=== PATIENT | female | born 1990 | race Caucasian/White ===

== ENCOUNTER → 2021-10-01 13:58 | Outpatient (CLI) | payer BC, SELFPAY ==
[2021-10-01 17:34] LABS: Hematocrit 32.6 % (37-47); Hemoglobin 10.5 g/dL (12.0-15.0); Mean Corp Hgb Conc 32.2 g/dL (32-36); Mean Corpuscular Volume 96.2 fL (81-99); Mean Platelet Vol. 10.3 fl (6.2-12.0); Platelet Count 359 K/mm3 (150-450); RBC Distribution Width CV 12.4 % (11.6-14.6); RBC Distribution Width SD 43.5 fl (35.1-43.9); Red Blood Count 3.39 M/mm3 (4.2-5.4); White Blood Count 14.6 K/mm3 (4.4-11.0)
[2021-10-01 17:37] LABS: Glucose Challenge Gest 1H 50g 81 mg/dL (70-140)
== END ==
PROVIDERS: Visit Provider Student in an Organized Health Care Education/Training Program
DX: Z34.82 Encounter for supervision of other normal pregnancy, second trimester (principal)
CPT/HCPCS: 36415; 82950; 85027

== ENCOUNTER → 2021-10-15 13:42 | Outpatient (CLI) | payer BC, SELFPAY ==
[2021-10-15 14:38] LABS: ALB/GLOB Ratio 0.6 RATIO (0.9-2.4); AST(SGOT) 12 U/L (15-37); Alanine Aminotransfer ALT/SGPT 17 U/L (13-56); Albumin, Serum 2.6 g/dL (3.2-5.0); Alkaline Phosphatase 89 U/L (45-117); Anion Gap 7 (5-15); BUN 7 mg/dL (7-18); BUN/Creat Ratio 10.4 RATIO (10-20); Calcium,Total 8.8 mg/dL (8.5-10.1); Chloride 106 mmol/L (98-107); Creatinine, Serum 0.68 mg/dL (0.55-1.02); EST Glomerular Filtration Rate 110 mL/min (>60); Est Glom Filt Rate - Afr Amer 133 mL/min (>60); Globulin 4.2 g/dL (2.2-4.2); Glucose 93 mg/dL (74-106); Potassium 3.5 mmol/L (3.5-5.1); Protein, Total 6.8 g/dL (6.4-8.2); Sodium Level 137 mmol/L (136-145)
== END ==
PROVIDERS: Visit Provider Student in an Organized Health Care Education/Training Program
DX: O26.893 Other specified pregnancy related conditions, third trimester (principal); L29.9 Pruritus, unspecified; Z3A.00 Weeks of gestation of pregnancy not specified
CPT/HCPCS: 36415; 80053

== ENCOUNTER 2021-12-11 16:52 | Outpatient (CLI) | payer BC, SELFPAY ==
[2021-12-11 17:35] LABS: Hematocrit 31.2 % (37-47); Hemoglobin 9.6 g/dL (12.0-15.0); Mean Corp Hgb Conc 30.8 g/dL (32-36); Mean Corpuscular Hgb 27.3 pg (27.0-32.0); Mean Corpuscular Volume 88.6 fL (81-99); Mean Platelet Vol. 11.4 fl (6.2-12.0); Platelet Count 306 K/mm3 (150-450); RBC Distribution Width SD 44.6 fl (35.1-43.9); Red Blood Count 3.52 M/mm3 (4.2-5.4); White Blood Count 13.3 K/mm3 (4.4-11.0)
== END 2021-12-11 23:59 | disposition short-term general hospital (02) ==
LOC: WOBLAB 16:53
PROVIDERS: Visit Provider Student in an Organized Health Care Education/Training Program
DX: O99.019 Anemia complicating pregnancy, unspecified trimester (principal); D64.9 Anemia, unspecified; Z3A.00 Weeks of gestation of pregnancy not specified; Z36.85 Encounter for antenatal screening for Streptococcus B
CPT/HCPCS: 36415; 85027; 87081

== ENCOUNTER 2021-12-20 17:50 | Outpatient (CLI) | payer BC, SELFPAY ==
[2021-12-20 17:56] VITALS: BMI 27.3
[2021-12-20 18:06] VITALS: BP 123/77; PULSE 85; O2SAT 100
[2021-12-20 18:16] VITALS: TEMP 37.2; O2SAT 100
--- NOTE | 2021-12-20 19:05 | OB.TRI.NOTE ---
HPI - General HPI Narrative SHOSHANA ASTUDILLO, is a 31 F who presents with leakage of fluid PFSH PFSH Home Medications famotidine 20 mg PO DAILY 12/20/21 [History Last Taken Unknown] ferrous sulfate mg PO 12/20/21 [History Last Taken Unknown] uggdulcl-[id number]-Vw-FA [] tab PO 12/20/21 [History Last Taken Unknown] Allergy/AdvReac Type Severity Reaction Status Date / Time No Known Allergies Allergy Verified 12/20/21 18:32 Physical Exam Const alert, oriented x3, no apparent distress, average body habitus, healthy appearing and well nourished HEENT moist oral mucous membranes Head and Scalp: normocephalic and atraumatic Face and Sinus: normal facial exam Eyes PERRL Neck full ROM Resp normal respiratory effort, no retractions and no use of accessory muscles Extremity normal to inspection and full ROM Psych mental status grossly normal, affect normal, speech normal and activity/motor behavior normal NST FHR Rate Baby A Baseline: 130 Variability:: Moderate Accelerations:: 15 x 15 Decelerations:: None NST Reactive:: Yes Uterine Activity:: Quiet Assessment & Plan (1) : PLAN: Patient seen and examined. Leakage of fluid. ROM sent and pending. NST reactive. If from test negative okay to discharge home and follow-up at scheduled appointments
[2021-12-20 19:31] LABS: ROM Internal Control Test YES-OK TO RESULT pt. (Internal QC); ROM Patient Test Negative (Negative)
== END 2021-12-20 23:59 | disposition home or self-care (01) ==
LOC: WPOUT 17:54 → WP 17:56
PROVIDERS: Visit Provider Obstetrics & Gynecology
DX: O42.90 Premature rupture of membranes, unspecified as to length of time between rupture and onset of labor, unspecified weeks of gestation (principal); Z3A.00 Weeks of gestation of pregnancy not specified
CPT/HCPCS: 59025; 59050; 84112; 99218; G0378

== ENCOUNTER 2021-12-24 16:49 | Outpatient (CLI) | payer BC, SELFPAY ==
[2021-12-24 17:25] LABS: Hematocrit 29.5 % (37-47); Hemoglobin 9.5 g/dL (12.0-15.0); Mean Corp Hgb Conc 32.2 g/dL (32-36); Mean Corpuscular Hgb 27.7 pg (27.0-32.0); Mean Platelet Vol. 11.2 fl (6.2-12.0); Platelet Count 327 K/mm3 (150-450); RBC Distribution Width CV 14.8 % (11.6-14.6); RBC Distribution Width SD 45.8 fl (35.1-43.9); Red Blood Count 3.43 M/mm3 (4.2-5.4); White Blood Count 11.8 K/mm3 (4.4-11.0)
[2021-12-24 17:42] LABS: ALB/GLOB Ratio 0.5 RATIO (0.9-2.4); AST(SGOT) 20 U/L (15-37); Alanine Aminotransfer ALT/SGPT 19 U/L (13-56); Albumin, Serum 2.4 g/dL (3.2-5.0); Alkaline Phosphatase 215 U/L (45-117); Anion Gap 7 (5-15); BUN 7 mg/dL (7-18); BUN/Creat Ratio 11.2 RATIO (10-20); Calcium,Total 8.6 mg/dL (8.5-10.1); Chloride 107 mmol/L (98-107); Creatinine, Serum 0.63 mg/dL (0.55-1.02); EST Glomerular Filtration Rate 119 mL/min (>60); Est Glom Filt Rate - Afr Amer 144 mL/min (>60); Globulin 4.4 g/dL (2.2-4.2); Glucose 99 mg/dL (74-106); LDH 182 U/L (84-246); Potassium 3.5 mmol/L (3.5-5.1); Protein, Total 6.8 g/dL (6.4-8.2); Sodium Level 137 mmol/L (136-145)
[2021-12-24 18:35] LABS: Protein, Urine (Random) < 6.0 mg/dL (<11.9)
== END 2021-12-24 23:59 | disposition short-term general hospital (02) ==
LOC: WOBLAB 16:50
PROVIDERS: Visit Provider Student in an Organized Health Care Education/Training Program
DX: O26.899 Other specified pregnancy related conditions, unspecified trimester (principal); R03.0 Elevated blood-pressure reading, without diagnosis of hypertension; Z3A.00 Weeks of gestation of pregnancy not specified
CPT/HCPCS: 36415; 80053; 82570; 83615; 84156; 85027; 87077; 87086; 87088; 87186

== ENCOUNTER 2021-12-26 19:11 | Inpatient (IN) | payer BC, SELFPAY ==
[2021-12-26] VITALS (25 sets, daily range): BP systolic 113–167; BP diastolic 56–91; PULSE 70–102; TEMP 36.7; O2SAT 80–99
[2021-12-26] MEDS: Lactated Ringers 1,000 ML 50 ML IV (20:01)
[2021-12-26 20:18] LABS: Bacteria 0 SEEN /hpf (None Seen); Mucous, Urine 0 SEEN /hpf (<or=2+); Red Blood Cells-Urine 0 SEEN /hpf (0-5)
[2021-12-26] MEDS: Oxytocin 30 units/NS 500 ml 30 UNITS/500 ML IV.SOLN IV (20:20)
[2021-12-26 20:34] LABS: Hematocrit 28.5 % (37-47); Hemoglobin 8.8 g/dL (12.0-15.0); Mean Corp Hgb Conc 30.9 g/dL (32-36); Mean Corpuscular Hgb 26.9 pg (27.0-32.0); Mean Corpuscular Volume 87.2 fL (81-99); Mean Platelet Vol. 11.3 fl (6.2-12.0); Platelet Count 334 K/mm3 (150-450); RBC Distribution Width CV 14.8 % (11.6-14.6); RBC Distribution Width SD 46.5 fl (35.1-43.9); Red Blood Count 3.27 M/mm3 (4.2-5.4); White Blood Count 14.8 K/mm3 (4.4-11.0)
[2021-12-26 20:35] LABS: Absolute Lymphocyte Count 2.28 X10^3/uL (0.83-4.51); Absolute Neutrophil Count 11.2 X10^3/uL (2.0-7.7); Basophil# 0.05 X10^3/uL; Basophil% 0.3 % (0-1); Eosinophil# 0.18 X10^3/uL; Eosinophils% 1.2 % (0-5); Lymphocyte # 2.28 X10^3/ul (0.83-4.51); Lymphocyte % 15.4 % (19-41); Monocyte# 0.94 X10^3/uL; Monocyte% 6.4 % (0-10); Neutrophil # 11.15 X10^3/uL (2.7-7.7); Neutrophil % 75.6 % (47-70)
[2021-12-26 20:45] LABS: Protein, Urine (Random) 10.6 mg/dL (<11.9); Protein:Creat Ratio 155 mg/g CRE (0-200)
[2021-12-26 20:45] LABS: AST(SGOT) 22 U/L (15-37); Alanine Aminotransfer ALT/SGPT 17 U/L (13-56); Creatinine, Serum 0.79 mg/dL (0.55-1.02); EST Glomerular Filtration Rate 92 mL/min (>60); Est Glom Filt Rate - Afr Amer 111 mL/min (>60); Estimated Creatinine Clearance 105.99 ml/min; LDH 203 U/L (84-246); Uric Acid 6.1 mg/dL (2.6-6.0)
[2021-12-26 20:47] LABS: Color, Urine Yellow (Yellow); Glucose, Dipstick Normal (Normal); Ketone-Dipstick Negative (Negative); Leukocyte Esterase-Dipstick 500 /ul (Negative); Nitrite-Dipstick Negative (Negative); Occult Blood-Urine Negative /ul (Negative); Protein-Dipstick Negative (Negative); Urine Bilirubin Dipstick Negative (Negative); Urine Clarity Clear (Clear); Urine Urobilinogen Normal (Normal)
--- NOTE | 2021-12-26 20:47 | PCM.HP.BLA ---
History and Physical Date of Admission: 12/26/21 Chief complaint: Induction of labor gestational hypertension History present illness: 31-year-old G 4P1 at 39 weeks and 0 days with CONSTANTINE: 01/02/2022 arrives for induction of labor with gestational hypertension. Denies headache, visual changes, chest pain, shortness of breath, nausea vomiting, right upper quadrant pain. Patient states good movement. Obstetric history: G1: 39-week male 05/14/2019 G2: SAB G3: SAB G4: Current Past medical history: None Medications: vitamin Past surgical history: None Allergies: No known drug allergies Social history: Denies smoking, alcohol use, drug use Review of systems: Besides above pertinent positives a full review of systems was performed and found to be negative Physical exam: Vitals: Blood pressure 142/86 pulse 79 General: Normal-appearing no acute distress HEENT: Normocephalic/atraumatic no cervical lymphadenopathy Cardiac/respiratory: No use of accessory muscles, nonlabored breathing Abdomen: Soft, nontender, gravid Pelvic exam: Cervical exam 3/80/-3. AROM clear fluid Extremities: No peripheral edema normal peripheral pulses Psych: Normal affect normal demeanor nonpressured speech Labs: White blood cell count 14.8 hemoglobin 8.8 hematocrit 28.5% platelets 334. Creatinine 0.79, AST 22 ALT 17 LDH 203 Assessment and plan: 31-year-old G4, P1 at 39 weeks and 0 days arrives for induction of labor with gestational hypertension Admit labor and delivery CEFM GBS negative Pitocin and AROM induction Gestational hypertension: Asymptomatic and HELLP labs within normal limits. We will continue to monitor blood pressures and treat appropriately Routine orders Anesthesia to see
[2021-12-26 20:51] LABS: White Blood Cells 5-10 SEEN /hpf (0-5)
[2021-12-26 20:52] LABS: Squamous Epithelial Cells - UA 10-25 SEEN /hpf (5-10)
[2021-12-26] MEDS: Lactated Ringers 500 ML 999 ML IV (21:50)
[2021-12-26 22:53] LABS: Syphilis Antibodies Non-reactive
[2021-12-26] MEDS: fentaNYL-bupivacaine (epidural) 100 ML BAG EPIDURAL (23:00)
[2021-12-27] VITALS (20 sets, daily range): BP systolic 116–179; BP diastolic 59–84; PULSE 66–111; RESP 16–18; TEMP 36.8–37.6; O2SAT 97–98
[2021-12-27] MEDS: Oxytocin 30 units/NS 500 ml 30 UNITS/500 ML IV.SOLN 334 UNITS IV (00:36)
--- NOTE | 2021-12-27 00:49 | EX.PCM.OBRPT ---
Vaginal Delivery Findings Description of Procedure: Normal spontaneous vaginal delivery of a viable male , vertex EVELIO. Head and shoulders delivered with ease. Cord cut and clamped. Baby handed off to patient. Placenta delivered via cord traction and fundal massage. First-degree midline perineal laceration noted and repaired in typical fashion. EBL 250 cc Apgars 8/9
[2021-12-27] MEDS: Ibuprofen 600 MG Tablet PO ×3 (03:35→22:43)
[2021-12-27] MEDS: Acetaminophen 500 MG Tablet 1000 MG PO ×2 (08:47→17:31)
[2021-12-27 08:55] LABS: Chlamydia Trachomatis by PCR Negative (Negative); Neisserai gonorrhoeae by PCR Negative (Negative); Probe Check PASS; Sample Adequacy Control PASS; Specimen Processing Control PASS
[2021-12-27] MEDS: Senna/Docusate Sodium 1 Tablet PO (17:32)
[2021-12-28 01:04] VITALS: BP 130/75; PULSE 71
[2021-12-28 01:05] VITALS: BP 130/75; PULSE 71; RESP 18; TEMP 36.9
[2021-12-28 07:35] VITALS: BP 133/81; PULSE 75
--- NOTE | 2021-12-28 08:37 | PN.OBGYN_ITS ---
Subjective Subjective day 2. No overnight complaints. Pain well controlled. Breast- feeding. Home today if okay with pulley man Objective Data Objective Data Vital Signs: Vital Signs Temp Pulse Resp BP Pulse Ox 98.4 F 75 18 133/81 H 98 12/28/21 01:05 12/28/21 07:35 12/28/21 01:05 12/28/21 07:35 12/27/21 16:04 Oxygen Delivery Method Room Air Weight: 178 lb 9.191 oz Intake & Output: Intake and Output for Last 24 Hours 12/26/21 12/27/21 12/28/21 23:59 23:59 23:59 Intake Total 599.90 / 599.90 1059.73 / 1059.73 Output Total 1200 / 1200 Balance 599.90 / 599.90 -140.27 / -140.27 Lab / Micro Data Result Diagrams: 12/26/21 20:01 12/26/21 20:01 Labs: Laboratory Results - last 24 hr 12/26/21 20:01: Chlam trachomat DNA PCR Negative, N.gonorrhoeae DNA (PCR) Neg ative Micro: Microbiology 12/26/21 19:50 Nasal Secretion SARS-CoV-2 Antigen (Rapid) - Final
--- NOTE | 2021-12-28 08:37 | PCM.DC ---
Discharge Instructions Diet Discharge Diet: No restrictions Activity Discharge Activity: Return to Normal Activity, May Drive and May Shower May resume sexual activity in: 4-6 weeks Weight Bearing Status: Weight bearing as tolerated Dressing / Incision Call your doctor if your incision/area has: Continuous Slow Oozing and Foul Smelling Discharge Call your doctor if you observe: Fever of 101 or Higher, Shortness of breath and Chest pain Follow Up Care Please Follow Up With: Gucci Mcfarlane MD When: 2-week telehealth visit, 4 to 6 weeks Test Results: Test results from this visit will be discussed in further detail at your follow-up appointment, if applicable. Discharge Plan Admission Admit Date/Time: 12/26/21 19:11 Attending Provider: Gucci Mcfarlane Discharge Orders/Prescriptions Prescriptions: No Action famotidine 20 mg Tablet 20 mg PO DAILY RF: 0 1 mg Tablet 1 tab PO DAILY RF: 0 ferrous sulfate 325 mg (65 mg iron) Capsule, Extended Release 325 mg PO DAILY RF: 0 Disposition Discharge Orders: Discharge Patient (Routine); Ordered 12/28/21 Ordered By: Dr. Gucci Mcfarlane
[2021-12-28 08:38] VITALS: BP 133/81; PULSE 77; RESP 14; TEMP 37; O2SAT 98
[2021-12-28] MEDS: Acetaminophen 500 MG Tablet 1000 MG PO (11:08)
== END 2021-12-28 12:25 | disposition home or self-care (01) | DRG 807 ==
PROVIDERS: Admitting Provider Obstetrics & Gynecology; Visit Provider Obstetrics & Gynecology
DX: O13.4 Gestational [pregnancy-induced] hypertension without significant proteinuria, complicating childbirth (principal); Z37.0 Single live birth; O26.23 Pregnancy care for patient with recurrent pregnancy loss, third trimester; O70.0 First degree perineal laceration during delivery; Z3A.39 39 weeks gestation of pregnancy
CPT/HCPCS: 59025; 59050; 81001; 82565; 82570; 83615; 84156; 84450; 84460; 84550; 85025; 86780; 86850; 86900; 86901; 87426; 87491; 87591; 99218; J7120; G0378

== ENCOUNTER → 2022-09-09 | Outpatient (CLI) | payer BC, SELFPAY ==
[2022-09-17 16:00] LABS: HPV APTIMA, High Risk Negative (Negative)
== END | disposition home or self-care (01) ==
LOC: LABSPEC 15:27
PROVIDERS: Visit Provider Student in an Organized Health Care Education/Training Program
DX: Z12.4 Encounter for screening for malignant neoplasm of cervix (principal)
CPT/HCPCS: 87624; 88175; G0145

== ENCOUNTER → 2022-12-09 | Outpatient (CLI) | payer BC, SELFPAY ==
[2022-12-13 16:06] LABS: HPV APTIMA, High Risk Negative (Negative)
== END | disposition home or self-care (01) ==
LOC: LABSPEC 13:32
PROVIDERS: Visit Provider Student in an Organized Health Care Education/Training Program
DX: Z12.4 Encounter for screening for malignant neoplasm of cervix (principal)
CPT/HCPCS: 87624; 88175; G0145

== ENCOUNTER → 2023-04-25 | Outpatient (CLI) | payer BC, SELFPAY ==
[2023-04-25 11:54] LABS: Absolute Lymphocyte Count 2.34 X10^3/uL (0.83-4.51); Basophil# 0.07 X10^3/uL; Basophil% 0.8 % (0-1); Eosinophil# 0.11 X10^3/uL; Eosinophils% 1.3 % (0-5); Hemoglobin 12.6 g/dL (12.0-15.0); Lymphocyte # 2.34 X10^3/ul (0.83-4.51); Lymphocyte % 28.4 % (19-41); Mean Corp Hgb Conc 32.3 g/dL (32-36); Mean Corpuscular Hgb 29.4 pg (27.0-32.0); Mean Corpuscular Volume 91.1 fL (81-99); Monocyte# 0.73 X10^3/uL; Monocyte% 8.8 % (0-10); NRBC Flagged by Analyzer 0 % (0-5); Neutrophil # 4.96 X10^3/uL (2.7-7.7); Neutrophil % 60.2 % (47-70); Platelet Count 305 K/mm3 (150-450); RBC Distribution Width CV 12.6 % (11.6-14.6); RBC Distribution Width SD 41.6 fl (35.1-43.9); Red Blood Count 4.28 M/mm3 (4.2-5.4); White Blood Count 8.3 K/mm3 (4.4-11.0)
[2023-04-25 12:59] LABS: Estradiol 173.7 pg/mL; Follicle Stimulating Hormone 2.8 mIU/mL; Luteinizing Hormone 7.5 mIU/mL; Prolactin 10.9 ng/mL; T4 Free Direct 0.76 ng/dL (0.76-1.46); Thyroid Stim Hormone (TSH) 2.14 uIU/mL (0.358-3.74)
== END | disposition home or self-care (01) ==
LOC: WOBLAB 11:32
PROVIDERS: Visit Provider Nurse Practitioner Women's Health
DX: N93.9 Abnormal uterine and vaginal bleeding, unspecified (principal)
CPT/HCPCS: 36415; 82670; 83001; 83002; 84146; 84439; 84443; 85025

== ENCOUNTER → 2023-05-30 | Outpatient (CLI) | payer BC, SELFPAY ==
[2023-05-30 15:57] LABS: Absolute Lymphocyte Count 2.46 X10^3/uL (0.83-4.51); Absolute Neutrophil Count 6.6 X10^3/uL (2.0-7.7); Basophil# 0.06 X10^3/uL; Basophil% 0.6 % (0-1); Eosinophil# 0.11 X10^3/uL; Eosinophils% 1.1 % (0-5); Hematocrit 37.7 % (37-47); Hemoglobin 12.2 g/dL (12.0-15.0); Lymphocyte # 2.46 X10^3/ul (0.83-4.51); Lymphocyte % 24.6 % (19-41); Mean Corp Hgb Conc 32.4 g/dL (32-36); Mean Corpuscular Hgb 29.8 pg (27.0-32.0); Mean Platelet Vol. 10.8 fl (6.2-12.0); Monocyte# 0.74 X10^3/uL; Monocyte% 7.4 % (0-10); NRBC Flagged by Analyzer 0 % (0-5); Neutrophil # 6.61 X10^3/uL (2.7-7.7); Neutrophil % 65.9 % (47-70); Platelet Count 298 K/mm3 (150-450); RBC Distribution Width CV 12.6 % (11.6-14.6); RBC Distribution Width SD 42.1 fl (35.1-43.9)
[2023-05-30 17:08] LABS: HIV - WCH Non-Reactive (Nonreactive); Hepatitis B Surface Antigen Non-Reactive (Nonreactive); Hepatitis C Antibody Non-Reactive (Nonreactive); Rubella IgG Reactive (Nonreactive); Syphilis Antibodies Non-reactive
[2023-06-01 08:08] LABS: V-Zoster IgG (Immunity) 1340 index (Immune >165)
== END | disposition home or self-care (01) ==
PROVIDERS: Visit Provider Student in an Organized Health Care Education/Training Program
DX: N91.2 Amenorrhea, unspecified (principal)
CPT/HCPCS: 36415; 85025; 86703; 86762; 86780; 86787; 86803; 87086; 87088; 87340

== ENCOUNTER → 2023-07-04 | Outpatient (CLI) | payer BC, SELFPAY ==
[2023-07-04 11:05] LABS: Hemoglobin A1c 5.3 % (3.8-5.6)
[2023-07-04 11:44] LABS: Thyroid Stim Hormone (TSH) 1.34 uIU/mL (0.358-3.74)
[2023-07-06 01:06] LABS: Anti-Cardiolipin Ab, IgG, Qn < 9 GPL U/mL (0-14); Anti-Cardiolipin Ab, IgM, Qn < 9 MPL U/mL (0-12); Dilute Prothrombin Time (dPT) 35.4 sec (0.0-47.6); Dilute Russell Viper Venom 30.6 sec (0.0-47.0); Interpretation Comment: (.); PTT-LA 36.4 sec (0.0-43.5); Thrombin Time 16.8 sec (0.0-23.0); dPT Confirm Ratio 0.97 Ratio (0.00-1.34)
[2023-07-06 10:07] LABS: Beta-2-Microglobulin, S 1.4 mg/L (0.6-2.4)
== END | disposition home or self-care (01) ==
PROVIDERS: Visit Provider Student in an Organized Health Care Education/Training Program
DX: N96 Recurrent pregnancy loss (principal)
CPT/HCPCS: 36415; 82232; 83036; 84443; 86147

== ENCOUNTER → 2023-10-13 | Outpatient (CLI) | payer BC, SELFPAY ==
[2023-10-13 17:05] LABS: Creatinine, Urine (random) < 13.00 mg/dL (NO RANGE EST.); Protein, Urine (Random) < 6.0 mg/dL (<11.9)
[2023-10-16 11:08] LABS: Chlamydia By Nucleic Acid AMP Negative (Negative); Gonococcus By Nucleic Acid AMP Negative (Negative)
== END | disposition home or self-care (01) ==
LOC: LABSPEC 16:07
PROVIDERS: Referring Provider Obstetrics & Gynecology; Visit Provider Obstetrics & Gynecology
DX: Z34.90 Encounter for supervision of normal pregnancy, unspecified, unspecified trimester (principal); Z87.59 Personal history of other complications of pregnancy, childbirth and the puerperium
CPT/HCPCS: 82570; 84156; 87086; 87088; 87491; 87591

== ENCOUNTER → 2023-10-27 | Outpatient (CLI) | payer BC, SELFPAY ==
[2023-10-27 17:10] LABS: Absolute Lymphocyte Count 2.21 X10^3/uL (0.83-4.51); Absolute Neutrophil Count 7.7 X10^3/uL (2.0-7.7); Basophil# 0.05 X10^3/uL; Basophil% 0.5 % (0-1); Eosinophil# 0.14 X10^3/uL; Eosinophils% 1.3 % (0-5); Hematocrit 37.4 % (37-47); Hemoglobin 12.7 g/dL (12.0-15.0); Lymphocyte # 2.21 X10^3/ul (0.83-4.51); Lymphocyte % 20.1 % (19-41); Mean Corpuscular Hgb 30.8 pg (27.0-32.0); Mean Corpuscular Volume 90.6 fL (81-99); Mean Platelet Vol. 10.1 fl (6.2-12.0); Monocyte# 0.85 X10^3/uL; Monocyte% 7.7 % (0-10); NRBC Flagged by Analyzer 0 % (0-5); Neutrophil % 70.1 % (47-70); Platelet Count 322 K/mm3 (150-450); RBC Distribution Width CV 12.8 % (11.6-14.6); RBC Distribution Width SD 42.3 fl (35.1-43.9); Red Blood Count 4.13 M/mm3 (4.2-5.4)
[2023-10-27 17:45] LABS: ALB/GLOB Ratio 0.9 RATIO (0.9-2.4); AST(SGOT) 14 U/L (15-37); Alanine Aminotransfer ALT/SGPT 14 U/L (13-56); Albumin, Serum 3.5 g/dL (3.2-5.0); Alkaline Phosphatase 45 U/L (45-117); Anion Gap 7 (5-15); BUN 8 mg/dL (7-18); BUN/Creat Ratio 14.9 RATIO (10-20); Calcium,Total 8.8 mg/dL (8.5-10.1); Chloride 108 mmol/L (98-107); Creatinine, Serum 0.54 mg/dL (0.55-1.02); EST Glomerular Filtration Rate 141 mL/min (>60); Est Glom Filt Rate - Afr Amer 171 mL/min (>60); Globulin 3.7 g/dL (2.2-4.2); Glucose 88 mg/dL (74-106); Potassium 3.6 mmol/L (3.5-5.1); Protein, Total 7.2 g/dL (6.4-8.2); Sodium Level 138 mmol/L (136-145)
[2023-10-27 17:58] LABS: NATERA MAILED SPECIMEN
[2023-10-27 18:20] LABS: HIV - WCH Non-Reactive (Nonreactive); Hepatitis B Surface Antigen Non-Reactive (Nonreactive); Hepatitis C Antibody Non-Reactive (Nonreactive); Rubella IgG Reactive (Nonreactive); Syphilis Antibodies Non-reactive
== END | disposition home or self-care (01) ==
LOC: LAB 16:42
PROVIDERS: Referring Provider Obstetrics & Gynecology; Visit Provider Obstetrics & Gynecology
DX: Z34.81 Encounter for supervision of other normal pregnancy, first trimester (principal); Z87.59 Personal history of other complications of pregnancy, childbirth and the puerperium
CPT/HCPCS: 36415; 80053; 85025; 86703; 86762; 86780; 86803; 86850; 86900; 86901; 87340

== ENCOUNTER → 2024-03-01 | Outpatient (CLI) | payer OTHER, SELFPAY ==
[2024-03-01 10:12] LABS: Absolute Lymphocyte Count 1.94 X10^3/uL (0.83-4.51); Absolute Neutrophil Count 10.5 X10^3/uL (2.0-7.7); Basophil# 0.08 X10^3/uL; Basophil% 0.6 % (0-1); Eosinophil# 0.17 X10^3/uL; Eosinophils% 1.2 % (0-5); Hematocrit 30.2 % (37-47); Hemoglobin 9.7 g/dL (12.0-15.0); Lymphocyte # 1.94 X10^3/ul (0.83-4.51); Lymphocyte % 13.7 % (19-41); Mean Corp Hgb Conc 32.1 g/dL (32-36); Mean Corpuscular Hgb 29.8 pg (27.0-32.0); Mean Corpuscular Volume 92.6 fL (81-99); Mean Platelet Vol. 10.2 fl (6.2-12.0); Monocyte# 0.91 X10^3/uL; Monocyte% 6.4 % (0-10); NRBC Flagged by Analyzer 0 % (0-5); Neutrophil % 74.3 % (47-70); Platelet Count 348 K/mm3 (150-450); RBC Distribution Width CV 12.6 % (11.6-14.6); RBC Distribution Width SD 42.4 fl (35.1-43.9); Red Blood Count 3.26 M/mm3 (4.2-5.4); White Blood Count 14.1 K/mm3 (4.4-11.0)
[2024-03-01 10:40] LABS: Glucose Challenge Gest 1H 50g 121 mg/dL (70-140)
[2024-03-01 10:59] LABS: HIV - WCH Non-Reactive (Nonreactive); Syphilis Antibodies Non-reactive
== END | disposition home or self-care (01) ==
LOC: LAB 09:20
PROVIDERS: Referring Provider Obstetrics & Gynecology; Visit Provider Obstetrics & Gynecology
DX: O09.90 Supervision of high risk pregnancy, unspecified, unspecified trimester (principal); Z3A.00 Weeks of gestation of pregnancy not specified; Z13.1 Encounter for screening for diabetes mellitus
CPT/HCPCS: 36415; 82950; 85025; 86703; 86780

== ENCOUNTER → 2024-04-12 | Outpatient (CLI) | payer OTHER, SELFPAY ==
[2024-04-12 10:20] LABS: Absolute Lymphocyte Count 1.93 X10^3/uL (0.83-4.51); Basophil# 0.08 X10^3/uL; Basophil% 0.6 % (0-1); Eosinophil# 0.14 X10^3/uL; Eosinophils% 1.1 % (0-5); Hematocrit 33.3 % (37-47); Hemoglobin 10.5 g/dL (12.0-15.0); Lymphocyte # 1.93 X10^3/ul (0.83-4.51); Lymphocyte % 15.2 % (19-41); Mean Corp Hgb Conc 31.5 g/dL (32-36); Mean Corpuscular Hgb 29.4 pg (27.0-32.0); Mean Corpuscular Volume 93.3 fL (81-99); Mean Platelet Vol. 10.5 fl (6.2-12.0); Monocyte# 1.05 X10^3/uL; Monocyte% 8.3 % (0-10); NRBC Flagged by Analyzer 0 % (0-5); Neutrophil # 8.99 X10^3/uL (2.7-7.7); Neutrophil % 71.1 % (47-70); Platelet Count 300 K/mm3 (150-450); RBC Distribution Width CV 15.5 % (11.6-14.6); RBC Distribution Width SD 52.1 fl (35.1-43.9); Red Blood Count 3.57 M/mm3 (4.2-5.4); White Blood Count 12.7 K/mm3 (4.4-11.0)
[2024-04-12 10:59] LABS: Ferritin 7 ng/mL (8-252); Iron 129 ug/dL (50-170); Iron Binding Capacity,Total 503 ug/dL (250-450); PERCENT IRON SATURATION 25.6 % (15.0-55.0)
[2024-04-12 16:52] LABS: Vitamin B12 199 pg/mL (211-911)
== END | disposition home or self-care (01) ==
LOC: LAB 09:28
PROVIDERS: Obstetrics & Gynecology; Referring Provider Nurse Practitioner Women's Health; Visit Provider Nurse Practitioner Women's Health
DX: O99.019 Anemia complicating pregnancy, unspecified trimester (principal); D64.9 Anemia, unspecified; Z3A.00 Weeks of gestation of pregnancy not specified
CPT/HCPCS: 82607; 82728; 83540; 83550; 85025

== ENCOUNTER → 2024-04-23 | Outpatient (CLI) | payer OTHER, SELFPAY | END | disposition home or self-care (01) | LOC: LABSPEC 17:15 | PROVIDERS: Referring Provider Advanced Practice Midwife; Visit Provider Advanced Practice Midwife | DX: O09.93 Supervision of high risk pregnancy, unspecified, third trimester (principal); Z3A.00 Weeks of gestation of pregnancy not specified | CPT/HCPCS: 87081 ==

== ENCOUNTER 2024-05-17 15:50 | Outpatient (CLI) | payer OTHER, SELFPAY ==
[2024-05-17 16:09] VITALS: BMI 26.9
[2024-05-17 16:14] VITALS: BP 122/70; PULSE 79; PULSE 89; RESP 16; TEMP 37.1; O2SAT 98
--- NOTE | 2024-05-22 07:44 | OB.TRI.HP_ITS ---
HPI - General General Date of Service: 05/17/24 HPI Narrative SHOSHANA ASTUDILLO, is a 33 F who presents at 40.1 with uncomfortable contractions after membrane sweep in office. PFSH PFSH Medical History Anxiety Gestational HTN Home Medications ?Medication ?Instructions ?Recorded ?Last Taken ?Type [id number] 1 mg 1 tab PO DAILY Check with primary 12/20/21 05/17/24 08:00 History tablet doctor 1 TAB ferrous sulfate 325 mg (65 mg 325 mg PO DAILY 03/29/24 05/16/24 21:00 History iron) tablet 325 mg famotidine 20 mg tablet 20 mg PO BID 05/12/24 05/17/24 08:00 History 20 mg mecobalamin (vitamin B12) 1,000 1,000 mcg PO DAILY 05/12/24 05/16/24 21:00 History mcg chewable tablet 1,000 mcg magnesium 200 mg tablet 200 mg PO DAILY 05/17/24 05/16/24 21:00 History 200 mg Allergy/AdvReac Type Severity Reaction Status Date / Time No Known Allergies Allergy Verified 05/19/24 21:40 Social History adopted: No household members: spouse and children number of children: 2 current occupational status: employed current occupation: MENTAL HEALTH COUNSELOR current occupational exposures/hazards: No pets and animals: Yes pets and animals: dog(s) history of recent travel: Yes (- AUGUST) out of state: Yes out of country: No sexually active: Yes Smoking Status: Never smoker alcohol intake: current alcohol intake frequency: holidays/special occasions only details: NOT WHILE substance use type: does not use well-balanced diet: daily or most days caffeine: Yes Type: coffee Number of servings: 1 eating out: 1-3 times/week during the past year weight has: remained stable what type of physical activity do you participate in: walking frequency: 3-4 times per week duration: 30-45 minutes/day don/nondenominational: Congregation seatbelt use: always do you feel safe at home: Yes additional social history: - 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 Date Name GA/Weeks Outcome Route Bth Weight Gen Labor Lgth Anesthesia Del Locatn Provider FOB 05/14/19 Anastacio 39 live - full term 9#2oz Male 18 lillian rs epidural [facility] 08/09/20 miscarriage 10 wks 01/07/21 miscarriage 6wks 12/27/21 Sam 38 live - full term 7# Male <4hrs epidu ral [facility] 06/26/23 miscarriage 7 wksblighted ovum 05/20/24 Stover 40 live - full term Male [facility] Lorraine Sj Delivery Date: 08/09/20 Last Updated by: Barbara Vincent blighted ovum Delivery Date: 12/27/21 Last Updated by: Barbara Vincent IOL- HTN Delivery Date: 05/20/24 Last Updated by: Elly Ruiz IOl decreased movement NST FHR Rate Baby A Baseline: 120 Variability:: Moderate Accelerations:: 15 x 15 Decelerations:: None NST Reactive:: Yes FHR Category:: Category I Uterine Activity:: irregular Assessment & Plan (1) Uterine contractions during : COMMENT: minimal change in cervical exam with lessening frequency and intensity of contractions. d/c home with labor precautions. PLAN: Patient presents for triage evaluation secondary to contractions FHT: Moderate variability reactive no decelerations category I tracing [place]: irreg Contractions Assessment and plan: Reactive NST, reassuring maternal and status patient discharged to home to follow-up as needed, labor precautions provided. See problem list details for additional plan information. Charges/Coding Procedures Urinary/Genital [id number]: [id number] non-stress test Interp
== END 2024-05-17 17:40 | disposition home or self-care (01) ==
LOC: WPOUT 16:00 → WP 16:00
PROVIDERS: Referring Provider Registered Nurse; Visit Provider Registered Nurse
DX: O47.1 False labor at or after 37 completed weeks of gestation (principal); Z3A.40 40 weeks gestation of pregnancy
CPT/HCPCS: 59025; 59050; 99212; 99221; G0378; G0463

== ENCOUNTER 2024-05-19 22:52 | Inpatient (IN) | payer OTHER, SELFPAY ==
[2024-05-19 21:39] VITALS: BMI 27.3
[2024-05-19 22:29] VITALS: BP 140/89; PULSE 74
--- NOTE | 2024-05-19 22:39 | PCM.HP.OB ---
HPI - General General Date of Admission: 05/19/24 Date of Service: 05/19/24 HPI Narrative SHOSHANA ASTUDILLO, is a 33 F 40.3 weeks gestation who presents to unit for decreased movement. one late deceleration noted on NST and decision made for IOL. Maternal Data Information CONSTANTINE Calculator Estimated Delivery Date Method Current WG Current Estimate 05/16/24 Ultrasound #2 40w 3d Other Estimates 05/23/24 LMP (Certain) 39w 3d 05/20/24 Ultrasound #1 39w 6d Final CONSTANTINE: 05/16/24 Final CONSTANTINE Source: US >20 weeks Gestational age: 40.3 weeks [facility] Medical History Anxiety Gestational HTN no medical history Home Medications ?Medication ?Instructions ?Recorded ?Last Taken ?Type wlivnrrj-ijd-Ub-FA 1 mg 1 tab PO DAILY Check with primary 12/20/21 05/17/24 08:00 History tablet doctor 1 TAB aspirin 81 mg tablet,delayed 81 mg PO DAILY 03/29/24 05/16/24 21:00 History release 81 mg ferrous sulfate 325 mg (65 mg 325 mg PO DAILY 03/29/24 05/16/24 21:00 History iron) tablet 325 mg famotidine 20 mg tablet 20 mg PO BID 05/12/24 05/17/24 08:00 History 20 mg mecobalamin (vitamin B12) 1,000 1,000 mcg PO DAILY 05/12/24 05/16/24 21:00 History mcg chewable tablet 1,000 mcg magnesium 200 mg tablet 200 mg PO DAILY 05/17/24 05/16/24 21:00 History 200 mg Allergy/AdvReac Type Severity Reaction Status Date / Time No Known Allergies Allergy Verified 05/19/24 21:40 Social History adopted: No household members: spouse and children number of children: 2 current occupational status: employed current occupation: MENTAL HEALTH COUNSELOR current occupational exposures/hazards: No pets and animals: Yes pets and animals: dog(s) history of recent travel: Yes (- AUGUST) out of state: Yes out of country: No sexually active: Yes Smoking Status: Never smoker alcohol intake: current alcohol intake frequency: holidays/special occasions only details: NOT WHILE substance use type: does not use well-balanced diet: daily or most days caffeine: Yes Type: coffee Number of servings: 1 eating out: 1-3 times/week during the past year weight has: remained stable what type of physical activity do you participate in: walking frequency: 3-4 times per week duration: 30-45 minutes/day don/baptism: Hoahaoism seatbelt use: always do you feel safe at home: Yes additional social history: - [employer] TO BE COUNSELOR History 6 Elective abortions Hx Para 2 Spontaneous abortions 3 Hx # Term Pregnancies Ectopic pregnancies Hx # Pregnancies Multiple births # of living children 2 Past Pregnancies Del. Date Name GA/Weeks Outcome Route Bth Weight Infant Gen Labor Lgth Anesthesia Del Locatn Provider FOB 05/14/19 Anastacio 39 live - full term 9#2oz Male 18 hours epidural [facility] 08/09/20 miscarriage 10 wks 01/07/21 miscarriage 6wks 12/27/21 Sam 38 live - full term 7# Male <4hrs epidural [facility] Jenni Mcfarl[facility] 06/26/23 miscarriage 7 wksblighted ovum Delivery Date: 08/09/20 Last Updated by: Barbara Vincent blighted ovum Delivery Date: 12/27/21 Last Updated by: Barbara Vincent IOL- HTN Visit Details Expected Delivery Route/Plan Labor Preferences- CB/BF classes: no labor support person: Moshe labor intervention preferences: [] pain management options preferred: epidural cut cord/dad catch: yes : yes PP control planned: discussed discussed possible routes of delivery and associated risks: [] special requests: [] Plans Covid status: 12/2023 Flu vaccine: given Tdap vaccine: given 03/01/2024 Rhogam: NA LARC form signed: yes Problem list reviewed and updated with the most current plan of care details and appropriate orders placed. Relevant counseling for the gestational age provided. Continue routine care and follow up unless otherwise noted in visit notes/problem list details OB Flowsheet Initial Weight: Not Recorded Date <del>?</del> EGA Weight BP Urine Prot <del>?</del> Glucose FHR FuHt Pres Dilation <del>?</del> Effaced St Visit Note 10/13/23 <del>?</del> 9w 1d 139 lb 135/89 <del>?</del> 171 <del>?</del> JV JV- CRL consistent with LMP. desires NIPT and flu shot today. 11/10/23 <del>?</del> 13w 1d 142 lb 2 oz 131/80 Negative <del>?</del> Negative 160 <del>?</del> JV- CRL is off today by more than a week and views are very clear. will change due date now to 05/16/24. Normal boy nipt 12/08/23 <del>?</del> 17w 1d 143 lb 2 oz 125/77 Negative <del>?</del> Negative 155 <del>?</del> LC- no vb/cramping. started feeling more movements, but concerned today for less movement. +FHR on doppler. has anatomy scheduled. declines afp. 01/05/24 <del>?</del> 21w 1d 148 lb 2 oz 110/72 Negative <del>?</del> Negative 137 20 <del>?</del> JV- low lying placenta on anatomy scan . rpt at 28 weeks. precautions discussed. no complaints today. 02/06/24 <del>?</del> 25w 5d 155 lb 125/79 Negative <del>?</del> Negative 145 24 <del>?</del> SM- no vb lof good fm n oregular ctx 03/01/24 <del>?</del> 29w 1d 163 lb 4 oz 120/78 Negative <del>?</del> Negative 151 29 <del>?</del> MH-No VB, LOF. Good Fm. 28 wk labs, larc, tdap. 03/15/24 <del>?</del> 31w 1d 167 lb 2 oz 118/77 Negative <del>?</del> Negative 136 31 <del>?</del> LC- no vb/ctx/lof. good fm. passed glucose. no concerns. LC- no vb/ctx/lof. good fm. passed glucose. no concerns. placenta no longer low lying. 03/29/24 <del>?</del> 33w 1d 169 lb 4 oz 126/71 Negative <del>?</del> Negative 125 34 <del>?</del> JV-no lof, vaginal bleeding, or dec fm. checking iron studies and cbc 04/16/24 <del>?</del> 35w 5d 169 lb 8 oz 123/84 Negative <del>?</del> Negative 135 35 <del>?</del> KW- no vb/lof/ctx. good fm. hgb increased. 04/23/24 <del>?</del> 36w 5d 171 lb 117/75 <del>?</del> 120 36 1 <del>?</del> 60 -2 KW- no vb/lof/reg ctx. good fm. GBS today 04/30/24 <del>?</del> 37w 5d 173 lb 4 oz 120/72 Negative <del>?</del> Negative 130 37 Cephalic 1 <del>?</del> 60 -2 SM- no vb lof good fm n oregular ctx 05/07/24 <del>?</del> 38w 5d 176 lb 6 oz 129/77 Negative <del>?</del> Negative 130 38 Cephalic 1.5 <del>?</del> 60 -2 SM- no vb lof good fm no regular ctx 05/12/24 <del>?</del> 39w 3d 180 lb 2 oz 110/67 Negative <del>?</del> Negative 140 38 Cephalic 1.5 <del>?</del> 80 -2 JV- pt does not want membrane sweep today due to son's b-day coming up. She wants to come back friday if not in labor to try a sweep. no lof, vaginal bleeding, or dec. fm. 05/14/24 <del>?</del> 39w 5d 175 lb 4 oz 113/73 Negative <del>?</del> Negative 14 38 Cephalic 2 <del>?</del> 60 -2 JV- pt here for membrane sweep. labor precautions discussed. no complaints today 05/17/24 <del>?</del> 40w 1d 178 lb 125/83 Negative <del>?</del> Negative 147 38 Cephalic 2 <del>?</del> 80 -2 JV- membranes swept again today. pt complains that movement is less today. NST reactive. if dec fm continues pt to come to l&D. setting up 41 week IOL NST FHR Rate Baby A Baseline: 130 Variability:: Moderate Accelerations:: 15 x 15 Decelerations:: Late NST Reactive:: Yes FHR Category:: Category I Uterine Activity:: 5-6 minutes ROS Constitutional Constitutional: Denies change in weight, fatigue, fever(s), headache(s), poor appetite or weakness Eyes Eyes: Denies blurry vision, change in vision, floaters, seeing flashes or spots in vision ENT HEENT: Denies dizziness, headache(s), loss taste/smell or sore throat Cardiovascular Cardiovascular: Denies chest pain, dizziness, dyspnea, irregular heart rhythm, lightheadedness, palpitations or rapid heart rate Respiratory/Chest Respiratory/Chest: Denies change in mental status, chest tightness, cough, dyspnea or breast pain Gastrointestinal Gastrointestinal: Denies anorexia, chewing difficulty, constipation, diarrhea or weight changes Genitourinary Genitourinary: Denies difficulty urinating, dysuria, flank pain, genital pain, urinary frequency or urinary urgency Musculoskeletal Musculoskeletal: Denies back pain, difficulty walking, extremity pain, joint pain, muscle cramps or muscle weakness Integumentary Integumentary: Denies lesions or unusual bruising Neurologic Neurologic: Denies abnormal movements, abnormal speech, dizziness, numbness, seizure-like activity, syncope or weakness Psychiatric Psychiatric: Denies behavioral changes, change in appetite, confusion, depression, homicidal ideation, suicidal ideation or suicidal thoughts Endocrine Endocrinology: Denies excessive sweating, polydipsia or polyuria Hematologic/Lymphatic Hematologic/Lymphatic: Denies anemia Allergic/Immunologic Allergic/Immunologic: Denies itchy eyes, lip swelling, throat swelling, tongue swelling or wheezing Vital Signs Vital Signs Vital Signs: 05/19/24 22:29 05/19/24 22:29 Pulse Rate 74 Blood Pressure 140/89 H BP Systolic 140 BP Diastolic 89 Weight Weight: 180 lb 4 oz Body Mass Index (BMI) 27.3 Physical Exam Const alert, oriented x3 and no apparent distress General Appearance: cooperative Orientation / Consciousness: awake HEENT normocephalic Neck full ROM Lymph Lymphatic: no lymphadenopathy noted Chest inspection of chest normal Resp normal respiratory effort and normal air movement Effort and Inspection: able to speak in complete sentences and symmetric chest movement GI soft to palpation and non-tender Inspection: gravid Palpation: soft; Negative for tender external exam normal Back/Spine normal to inspection Extremity normal to inspection and full ROM Skin no rashes or lesions noted Psych mental status grossly normal Appearance: grossly normal Speech: normal speech Labs Labs Labs: Blood Type O POSITIVE Antibody Screen NEGATIVE Hct 33.3 % (37-47) L Hgb 10.5 g/dL (12.0-15.0) L Syphilis Total Ab Non-reactive VZV IgG Antibody 1340 index (Immune >165) Rubella IgG Antibody Reactive (Nonreactive) Hep Bs Antigen Non-Reactive (Nonreactive) Hepatitis C Antibody Non-Reactive (Nonreactive) Chlamydia DNA (KIRSTIN) Negative (Negative) N.gonorrhoeae DNA (KIRSTIN) Negative (Negative) HIV 1&2 Antibody Non-Reactive (Nonreactive) Glucose 1 Hr 50 gm 121 mg/dL (70-140) Rhogam given: No Miscellaneous Test Assessment & Plan (1) Encounter for induction of labor: COMMENT: decreased movement PLAN: Patient presents IOL, plan management for with pitocin/AROM. Pain management: plans epidural. GBS negative. Management of any complications: none I have reviewed the [facility] and made any clinically relevant updates. Dr Ray aware of and agrees with admission, assessement and plan (2) Anemia affecting : (3) COVID-19: COMMENT: 12/2023 symptomatic. Family members positive. taking low dose ASA (4) History of gestational hypertension: (5) History of recurrent miscarriages: COMMENT: x3 (6) Supervision of high-risk : QUALIFIERS: Trimester: third trimester Qualified Code(s): O09.93 - Supervision of high risk , unspecified, third trimester COMMENT: PRR, , CONSTANTINE 05/23/24 boy MAGEN Hardyjazmyn Vargas, Noé (7) : QUALIFIERS: Weeks of gestation: 40 weeks Qualified Code(s): Z3A.40 - 40 weeks gestation of COMMENT: GBS neg, nl anatomy, NIPT low risk, declined ntd and carrier testing Charges/Coding Multi Select Codes Urinary/Genital Urinary/Genital CPT Codes: No Charge
[2024-05-19] MEDS: Lactated Ringers 1,000 ML 50 ML IV (23:24)
[2024-05-19 23:46] LABS: Absolute Lymphocyte Count 2.14 X10^3/uL (0.83-4.51); Absolute Neutrophil Count 9.1 X10^3/uL (2.0-7.7); Basophil# 0.06 X10^3/uL; Basophil% 0.5 % (0-1); Eosinophil# 0.17 X10^3/uL; Eosinophils% 1.3 % (0-5); Hematocrit 33.9 % (37-47); Hemoglobin 10.7 g/dL (12.0-15.0); Lymphocyte # 2.14 X10^3/ul (0.83-4.51); Mean Corp Hgb Conc 31.6 g/dL (32-36); Mean Corpuscular Hgb 29.5 pg (27.0-32.0); Mean Corpuscular Volume 93.4 fL (81-99); Mean Platelet Vol. 10.7 fl (6.2-12.0); Monocyte# 1.02 X10^3/uL; Monocyte% 8.1 % (0-10); NRBC Flagged by Analyzer 0 % (0-5); Neutrophil # 9.05 X10^3/uL (2.7-7.7); Neutrophil % 71.8 % (47-70); Platelet Count 279 K/mm3 (150-450); RBC Distribution Width CV 15.3 % (11.6-14.6); RBC Distribution Width SD 52.8 fl (35.1-43.9); Red Blood Count 3.63 M/mm3 (4.2-5.4); White Blood Count 12.6 K/mm3 (4.4-11.0)
[2024-05-19 23:52] VITALS: BP 129/80; PULSE 74; RESP 16; TEMP 36.7; O2SAT 96
[2024-05-19 23:56] LABS: Protein, Urine (Random) 9.3 mg/dL (<11.9); Protein:Creat Ratio 142 mg/g CRE (0-200)
[2024-05-19] MEDS: Oxytocin 15 Units/NS 250ml 15 UNITS/250 ML IV.SOLN 2 UNITS IV (23:57)
[2024-05-20] VITALS (42 sets, daily range): BP systolic 103–140; BP diastolic 59–95; PULSE 63–94; RESP 16; TEMP 36.1–36.8; O2SAT 94–100
[2024-05-20 00:09] LABS: AST(SGOT) 28 U/L (15-37); Alanine Aminotransfer ALT/SGPT 27 U/L (13-56); Creatinine, Serum 0.66 mg/dL (0.55-1.02); EST Glomerular Filtration Rate 111 mL/min (>60); Est Glom Filt Rate - Afr Amer 134 mL/min (>60); Estimated Creatinine Clearance 138.51 ml/min; Uric Acid 5.1 mg/dL (2.6-6.0)
[2024-05-20] MEDS: Mag Hydrox/Al Hydrox/Simeth 30 ML UDC PO (00:27)
[2024-05-20 00:29] LABS: Syphilis Antibodies Non-reactive
[2024-05-20] MEDS: Lactated Ringers 1,000 ML 999 ML IV (01:26)
--- NOTE | 2024-05-20 01:46 | PCM.PN.BLA ---
Progress Note Coping well with contractions-requesting epidural current tracing: FHT: 120 Moderate variability reactive no decelerations category I tracing [place]: 4-5 Contractions Membranes:ruptured AROM-clear SVE:/-1 A/P: Continue with position changes Titrate pitocin per protocol Epidural per anesthesia GBS neg Anticipate Dr Rizo aware of above assessment and agrees with plan of care Assessment & Plan Assessment/Plan (1) Encounter for induction of labor: (2) Anemia affecting : (3) COVID-19: (4) History of gestational hypertension: (5) History of recurrent miscarriages: (6) Supervision of high-risk : QUALIFIERS: Trimester: third trimester Qualified Code(s): O09.93 - Supervision of high risk , unspecified, third trimester (7) : QUALIFIERS: Weeks of gestation: 40 weeks Qualified Code(s): Z3A.40 - 40 weeks gestation of Multi Select Codes Urinary/Genital Urinary/Genital CPT Codes: No Charge
[2024-05-20] MEDS: fentaNYL-bupivacaine (epidural) 100 ML BAG EPIDURAL (02:31)
--- NOTE | 2024-05-20 04:03 | PN_ITS ---
Progress Note comfortable with epidural current tracing: FHT: 115 Moderate variability reactive no decelerations category I tracing [place]: 2-4 Contractions Membranes:ruptured. remains clear SVE:6.5/90/-2 A/P: Continue with position changes Titrate pitocin per protocol Epidural per anesthesia GBS neg Anticipate Dr Rizo aware of above assessment and agrees with plan of care Assessment & Plan Assessment/Plan (1) Encounter for induction of labor: (2) Anemia affecting : (3) COVID-19: (4) History of gestational hypertension: (5) History of recurrent miscarriages: (6) Supervision of high-risk : QUALIFIERS: Trimester: third trimester Qualified Code(s): O09.93 - Supervision of high risk , unspecified, third trimester (7) : QUALIFIERS: Weeks of gestation: 40 weeks Qualified Code(s): Z3A.40 - 40 weeks gestation of Multi Select Codes Urinary/Genital Urinary/Genital CPT Codes: No Charge
[2024-05-20] MEDS: Ondansetron 4 MG/2 ML Vial IV (04:08)
[2024-05-20] MEDS: 0.9% Saline Lock 10 ML Syringe IV (04:08)
--- NOTE | 2024-05-20 06:19 | DCINST_ITS ---
Discharge Instructions Diet Discharge Diet: No restrictions Activity Discharge Activity: Return to Normal Activity, May Not Drive (while taking narcotic pain medications.) and May Shower May resume sexual activity in: 4-6 weeks Dressing / Incision Call your doctor if your incision/area has: Continuous Slow Oozing, Sudden Increased Bleeding, Increased Pain/ Swelling, Increased Redness and Foul Smelling Discharge Follow Up Care Please Follow Up With: Delphine Ray DO When: Call [phone] to make an appointment with your doctor in 6 weeks. If you had elevated blood pressure or 4th degree laceration, you will need to be seen in 2 weeks. Test Results: Test results from this visit will be discussed in further detail at your follow- up appointment, if applicable. Discharge Plan Admission Admit Date/Time: 05/19/24 22:52 Primary Reason for Your Visit: vaginal delivery Attending Provider: Lorraine Gustafson Primary Care Provider: Brianne Davis Discharge Orders/Prescriptions Prescriptions: Continued ferrous sulfate 325 mg (65 mg iron) tablet 325 mg PO DAILY mecobalamin (vitamin B12) 1,000 mcg tablet,chewable 1,000 mcg PO DAILY famotidine 20 mg tablet 20 mg PO BID oigyaqpe-obs-Qp-FA 1 mg Tablet 1 tab PO DAILY magnesium 200 mg tablet 200 mg PO DAILY Discontinued aspirin 81 mg tablet,delayed release (DR/EC) 81 mg PO DAILY Referrals / Follow Up: Brianne Davis PA [Primary Care Provider] - Disposition Disposition (needs filled in before D/C Order can be placed): Home, Self Care
[2024-05-20] MEDS: Oxytocin 15 Units/NS 250ml 15 UNITS/250 ML IV.SOLN 83 UNITS IV (06:42)
--- NOTE | 2024-05-20 07:02 | OP.PCM_ITS ---
Assessment & Plan (1) Vaginal delivery: COMMENT: KW boy IOL decreased FM (2) Encounter for induction of labor: COMMENT: decreased movement (3) Anemia affecting : (4) COVID-19: COMMENT: 12/2023 symptomatic. Family members positive. taking low dose ASA (5) History of gestational hypertension: (6) History of recurrent miscarriages: COMMENT: x3 (7) Supervision of high-risk : QUALIFIERS: Trimester: third trimester Qualified Code(s): O09.93 - Supervision of high risk , unspecified, third trimester COMMENT: PRR, , CONSTANTINE 05/23/24 boy PC Anastacio Vargas, Noé (8) : QUALIFIERS: Weeks of gestation: 40 weeks Qualified Code(s): Z3A.40 - 40 weeks gestation of COMMENT: GBS neg, nl anatomy, NIPT low risk, declined ntd and carrier testing Maternal Data Information CONSTANTINE Calculator Estimated Delivery Date Method Current WG Current Estimate 05/16/24 Ultrasound #2 40w 4d Other Estimates 05/23/24 LMP (Certain) 39w 4d 05/20/24 Ultrasound #1 40w 0d Final CONSTANTINE: 05/16/24 Final CONSTANTINE Source: US >20 weeks Gestational age: 40.4 weeks Vaginal Delivery Maternal Presentation Maternal Presentation: Medically Indicated Induction (decreased movement) Maternal Presentation: Progressed well to 10cm dilated and made steady progress with effective maternal pushing. Delivered the head in NIRU presentation. The head was delivered atraumatically and a loose nuchal cord x2 was identified and was easily reduced over the infant's head. The anterior and posterior shoulders delivered without complication followed by the rest of the infant and the infant was placed on the maternal abdomen. Delayed cord clamping was employed for approximately 3 minutes. Cord was clamped and cut and gentle traction was applied to the cord and the placenta delivered spontaneously. Immediately following, it was noted to be intact with a 3 vessel cord. The perineum and vagina were inspected and noted to have a first degree laceration which was repaired with 3-0 Vicryl in the usual fashion. EBL was 200cc. Patient and infant tolerated delivery well. Apgars 8/9. [Yung] [Leigh] notified of vaginal delivery and orders reviewed. Physician agrees with current plan of care. 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 #1: Lorraine Gustafson Type of Anesthesia: Epidural Time of Delivery: 06:06 Findings Presentation: Vertex Amniotic Membrane Rupture Type: Artificial Amniotic Fluid Description: Clear Placental Delivery Description: Spontaneous Placenta Disposition: [facility] Cord Vessel Description: 3 Vessels Cord Entanglement: Around neck x 2, loose A Gender: Male (1 minute): 8 (5 minute): 9 Delayed Cord Clamping: Yes Post Vaginal Delivery Medications Given After Delivery: IV Pitocin Episiotomy Description: None Laceration: 1st degree Complication Complications: None Multi Select Codes Urinary/Genital Urinary/Genital CPT Codes: 84944 Vaginal Delivery [facility]
[2024-05-20] MEDS: Famotidine 20 MG Tablet PO ×2 (07:32→22:17)
[2024-05-20] MEDS: Ferrous Sulfate 325 MG Tablet PO (07:32)
[2024-05-20] MEDS: Ibuprofen 600 MG Tablet PO ×2 (07:32→16:57)
--- NOTE | 2024-05-20 10:01 | NURSING ---
missed hat for first void after delivery
[2024-05-20] MEDS: Acetaminophen 500 MG Tablet 1000 MG PO ×2 (11:51→19:58)
[2024-05-20] MEDS: Senna/Docusate Sodium 1 Tablet PO (19:57)
[2024-05-21 00:05] VITALS: BP 116/80; PULSE 66; RESP 16; TEMP 36.4
[2024-05-21 04:35] VITALS: BP 116/73; PULSE 64; RESP 16; TEMP 36.2
[2024-05-21] MEDS: Ibuprofen 600 MG Tablet PO (04:40)
[2024-05-21] MEDS: Ferrous Sulfate 325 MG Tablet PO (08:19)
[2024-05-21 08:29] VITALS: BP 115/76; PULSE 69; RESP 16; TEMP 36.8; O2SAT 98
--- NOTE | 2024-05-21 09:47 | PCM.PN.OB ---
Subjective Subjective Patient doing well without complaints. Tolerating PO. Ambulating and voiding without difficulty. Feeding well. Denies chest pain, shortness of breath, calf pain/swelling, fevers, chills, lightheadedness. Objective Data Objective Data Vital Signs: Vital Signs Temp Pulse Resp BP Pulse Ox O2 Del Method 98.2 F 69 16 115/76 98 High Flow 05/21/24 08:29 05/21/24 08:29 05/21/24 08:29 05/21/24 08:29 05/21/24 08:29 05/21/24 08:29 Oxygen Delivery Method High Flow Weight: 180 lb 4 oz Body Mass Index (BMI) 27.3 Intake & Output: Intake and Output for Last 24 Hours 05/19/24 05/20/24 05/21/24 23:59 23:59 23:59 Intake Total 2500.00 / 2500.00 Output Total 900 / 900 Balance 1600.00 / 1600.00 Lab / Micro Data 05/19/24 23:24 05/19/24 23:24 Physical Exam Const alert and no apparent distress Neck full ROM Lymph Lymphatic: no lymphadenopathy noted Chest inspection of chest normal and palpation of chest normal Resp normal respiratory effort and normal air movement Cardio regular rate and regular rhythm GI normal to inspection, nondistended, normoactive bowel sounds Uterus Palpation: uterus fundus firm Extremity normal to inspection, full ROM and no calf tenderness Skin no rashes or lesions noted Psych mental status grossly normal Assessment & Plan (1) Vacuum-assisted vaginal delivery: COMMENT: WANDER VAD PLAN: s/p PPD # 1 1. routine post delivery care 2. breast feeding- support given 3. rh positive 4. rubella immune 5. plan d/c tomorrow
[2024-05-21] MEDS: Famotidine 20 MG Tablet PO (10:26)
[2024-05-21] MEDS: Acetaminophen 500 MG Tablet 1000 MG PO (10:33)
[2024-05-21 13:57] VITALS: BP 114/80; PULSE 69; RESP 16; TEMP 36.3; O2SAT 98
[2024-05-21] MEDS: Senna/Docusate Sodium 1 Tablet PO (16:40)
[2024-05-21 19:12] VITALS: BP 116/87; PULSE 70; RESP 16; TEMP 36.6; O2SAT 97
--- NOTE | 2024-05-21 20:10 | CASEMGMT ---
Social Work Assessment Labor and Delivery Unit Patient Address: [address] [place] [address]. [place] [address] Phone number: Date of Referral: 05/21/24 Time of Referral:?05:13 Referred By: Dev Wells Date of Intervention: 05/21/24 Time of Intervention:?1500 Reason for Referral:?Mental Health History obtained from: medical records, mother of baby (MOB)? and father of baby (FOB).? Household composition: MOB, FOB, baby and siblings Anastacio, age 5 and Max, age 2. Patient's parent/guardian status:? ?MOB and FOB are , have been together for 10 years are living together and FOB is actively involved in the care of the baby and is supportive to MOB and the other children in the home. Medical History: ?KASHMIR has had 6 pregnancies and 3 live births. KASHMIR received routine care beginning at 9 weeks and throughout her . Mother had a vaginal delivery and reported she is currently doing well. Baby's : 8 and 9. Weight: 8lbs, 16 oz. Educational Status:? KASHMIR and AUDREY denied any concerns with reading or writing. Both have a Master's degree. 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 Both reported they have the financial means to care for baby and meet all basic needs at this time. Supplies:?? KASHMIR confirmed that she has all of the supplies for the baby she needs including but not limited to: crib, clothing, diapers, breast pump and bottles. She also has a car seat for the baby. Childcare/Caregiver(s):? KASHMIR will provide childcare on her days off and the other days, baby will be in childcare. Transportation:??MOB denied any concerns. Both KASHMIR and AUDREY are licensed drivers and are able to get themselves and baby to all scheduled medical appointments. Programs/Agencies Involved: KASHMIR reported they are in the process of getting involved with the [employer] Choice Program through [facility] which will provide a stipend for childcare director which she stated will help out a lot. [employer] is also currently involved for her 2 year old child however she denied a need for current baby. Children Services/Legal Issues:?Denied. Behavioral Health Issues: ??Mental Health History:?KASHMIR reported she had issues with anxiety for 1-2 months before she was in college and denied any major concerns since then. She reported she decided to go to school for counseling and reported effective use of coping strategies at this time and denied a need for counseling or treatment at this time. ?? Substance Use History:?Denied. ? Family History:?Not discussed. ?? Drug Screens: ?None.? Family/Social Stressors:? Denied any current stressors at this time. Support Systems: Intact. KASHMIR also reported she's very close to her parents and 4 brothers and stated they are all very supportive and available to help her if ever needed. Depression/Shaken Baby/Safe Sleeping: Education provided on PPD, SBS and SS. Both MOB and FOB verbalized an understanding. MOB denied any previous issues or concerns of PPD. ASSESSMENT:? KASHMIR consented to visit by social service worker and social service worker's primer supervisor. Upon entry, MOB was in bed and FOB was laying in a nearby chair holding baby. Baby was swaddled in a blanket, FOB was observed to be very attentive and positive interaction was observed. FOB looked at baby frequently and was observed to be very gentle with baby. Positive interaction and communication was observed between parents and both were very engaged during the visit. At the end of the visit, FOB was asked to leave so MOB could be met with alone. MOB assessed alone for MH and domestic violence which she denied. MOB reported she feels safe in her current environment and denied any safety concerns. MOB was receptive to PPD education and material provided. Safe Plan of Care for infant related to substance use:?No hx of substance abuse; not needed. ??? PLAN:? Baby to discharge to home when ready. ?No other services requested or indicated. Delphine Bennett, DIGITAL SPECIALIST, AUTOMATION QTP TESTER
== END 2024-05-21 19:30 | disposition home or self-care (01) | DRG 807 ==
LOC: WPOUT 22:59 → WP 22:59
PROVIDERS: Admitting Provider Advanced Practice Midwife; Referring Provider Advanced Practice Midwife; Visit Provider Advanced Practice Midwife
DX: O76 Abnormality in fetal heart rate and rhythm complicating labor and delivery (principal); Z37.0 Single live birth; O36.8130 Decreased fetal movements, third trimester, not applicable or unspecified; O48.0 Post-term pregnancy; O70.0 First degree perineal laceration during delivery; Z79.82 Long term (current) use of aspirin; Z3A.40 40 weeks gestation of pregnancy; O69.81X0 Labor and delivery complicated by cord around neck, without compression, not applicable or unspecified; O99.02 Anemia complicating childbirth; Z87.59 Personal history of other complications of pregnancy, childbirth and the puerperium; Z86.16 Personal history of COVID-19
CPT/HCPCS: 59025; 59050; 82565; 82570; 84156; 84450; 84460; 84550; 85025; 86780; 86850; 86900; 86901; 99221; J7120; A4216; G0378; J2405